=== PATIENT | male | born 1965 | race Caucasian/White ===

== ENCOUNTER 2023-01-19 10:35 | Emergency (ER) | payer OTHER ==
[~2023-01-19] VITALS: Ht 180.3 cm; Wt 100.7 kg
== END 2023-01-19 18:50 | disposition home or self-care (01) ==
LOC: ER 10:35
PROVIDERS: General Practice
DX: K57.32 Diverticulitis of large intestine without perforation or abscess without bleeding (principal); Z88.8 Allergy status to other drugs, medicaments and biological substances; K40.20 Bilateral inguinal hernia, without obstruction or gangrene, not specified as recurrent; K42.9 Umbilical hernia without obstruction or gangrene

== ENCOUNTER 2023-05-09 10:00 | Inpatient (IN) | payer OTHER ==
[2023-05-16 16:03] LABS: HEMATOCRIT 44.1 % (39.0-48.0); HEMOGLOBIN 14.8 g/dL (13-16.00); MEAN CELL VOLUME 86.4 fL (80.0-100.00); MEAN CORPUSCULAR HGB CONC 33.5 g/dl (32.0-36.0); PLATELET COUNT 199 K/uL (150-450); RED CELL DISTRIBUTION WIDTH 12.9 % (11.5-14.5)
[2023-05-17 07:47] LABS: HEMATOCRIT 42.8 % (39.0-48.0); HEMOGLOBIN 14.4 g/dL (13-16.00); MEAN CELL VOLUME 87.5 fL (80.0-100.00); MEAN CORPUSCULAR HEMOGLOBIN 29.4 pg (27.00-32.0); MEAN CORPUSCULAR HGB CONC 33.6 g/dl (32.0-36.0); PLATELET COUNT 178 K/uL (150-450); RED BLOOD COUNT 4.89 M/uL (4.00-6.00); RED CELL DISTRIBUTION WIDTH 13.1 % (11.5-14.5)
[2023-05-17 08:04] LABS: ALBUMIN 3.6 gm/dL (3.4-5.0); CALCIUM 8.4 mg/dL (8.5-10.1); CREATININE SERUM 1.05 mg/dL (0.70-1.30); GFR 72.29; MAGNESIUM 2.2 mg/dL (1.8-2.4); PHOSPHOROUS 3.1 mg/dL (2.5-4.9); POTASSIUM 4.35 mEq/L (3.5-5.1)
[2023-05-18 06:53] LABS: HEMATOCRIT 39.2 % (39.0-48.0); HEMOGLOBIN 13.4 g/dL (13-16.00); MEAN CELL VOLUME 86.3 fL (80.0-100.00); MEAN CORPUSCULAR HEMOGLOBIN 29.5 pg (27.00-32.0); MEAN CORPUSCULAR HGB CONC 34.1 g/dl (32.0-36.0); PLATELET COUNT 162 K/uL (150-450); RED BLOOD COUNT 4.55 M/uL (4.00-6.00); RED CELL DISTRIBUTION WIDTH 13.3 % (11.5-14.5)
[2023-05-18 07:16] LABS: CALCIUM 8.5 mg/dL (8.5-10.1); CREATININE SERUM 1.06 mg/dL (0.70-1.30); GFR 71.51; POTASSIUM 3.99 mEq/L (3.5-5.1)
[2023-05-18 08:40] LABS: PHOSPHOROUS 1.5 mg/dL (2.5-4.9)
[2023-05-19] MEDS ORDERED: INTESTINEX680 M1 PO (10:15)
[2023-05-19] MEDS ORDERED: LEVSIN/SL0.125 MG SL (10:15)
[2023-05-19] MEDS ORDERED: TRAM1TAB98 PO (10:15)
== END 2023-05-19 13:13 | disposition home or self-care (01) | DRG 331 ==
LOC: O/R 05-16 05:49 → SURH 05-16 05:49 → OB/GYN 05-16 10:00 → SURG 05-16 14:41 → O/R 05-16 15:26 → SURH 05-16 17:57
PROVIDERS: Internal Medicine Geriatric Medicine; ADMIT Surgery; ATTEND Surgery
PROC: 0DBP4ZZ Excision of Rectum, Percutaneous Endoscopic Approach (ICD-10-PCS; 2023-05-16)
PROC: 0WQF4ZZ Repair Abdominal Wall, Percutaneous Endoscopic Approach (ICD-10-PCS; 2023-05-16)
PROC: 0DTN4ZZ Resection of Sigmoid Colon, Percutaneous Endoscopic Approach (ICD-10-PCS; principal; 2023-05-16 11:15)
DX: K57.32 Diverticulitis of large intestine without perforation or abscess without bleeding (principal); K40.20 Bilateral inguinal hernia, without obstruction or gangrene, not specified as recurrent; K66.0 Peritoneal adhesions (postprocedural) (postinfection)